=== PATIENT | male | born 1985 | race American Indian/Alaskan Native ===

== ENCOUNTER 2021-09-16 17:27 | Emergency (ER) | payer SELFPAY ==
[2021-09-16 19:34] VITALS: BP 132/84
[2021-09-16 23:06] LABS: Bacteria,Urine 1+ /HPF (Negative); Mucus,Urine FEW /HPF
[2021-09-16 23:09] LABS: WBC,Urine > 182.0 /HPF (0.0-6.0)
[2021-09-16 23:10] LABS: Bilirubin,Urine Negative (Negative); Color,Urine Yellow (Yellow)
[2021-09-16 23:11] LABS: Blood,Urine Large (Negative)
[2021-09-16] MEDS ORDERED: LIDOCAINE-MPF (1%) 10 MG/1 ML VIAL 5 ML INFILTRATI ONE (23:22)
--- NOTE | 2021-09-17 00:05 | Emergency Department Report ---
ED Male HPI - General Chief complaint: Urogenital-Male Stated complaint: PENIS BLEEDING Source: patient Mode of arrival: Ambulatory Limitations: No Limitations - History of Present Illness Initial comments: Patient is a 36-year-old -[place] male with past medical history of asthma who presents to the ED with complaint of acute onset persistent dysuria, urinary frequency and urgency, penile discharge and intermittent hematuria for the last 2 days after having unprotected sexual intercourse with a new sexual partner. Patient states that he has multiple sexual partners and uses no protection. Patient denies dizziness, syncope, fever, chills, nausea and vomiting, diarrhea, abdominal pain, testicular pain, cough, sore throat or headache and low back pain. MD Complaint: penile discharge, dysuria, other (Urinary frequency and urgency; hematuria) -: days(s) (2) Location: penis Radiation: none Severity: severe Severity scale (0 -10): 7 Quality: burning, sharp Consistency: intermittent Improves with: none Worsens with: urination new sexual partner denies other symptoms, discharge, blood in urine, dysuria. denies: swelling, mass, rash, urinary retention, fever, nausea/vomiting, incontinence, other - Related Data Sexually active: Yes Previous Rx's Medication Instructions Recorded Last Taken Type Ibuprofen [Motrin 600 MG tab] 600 mg PO Q8H PRN #60 tablet 09/09/14 Unknown Rx Sulfamethoxazole/Trimethoprim 1 each PO BID #14 tablet 09/09/14 Unknown Rx [Bactrim DS TAB] traMADoL [Ultram 50 MG tab] 50 mg PO Q6HR PRN #14 tablet 09/09/14 Unknown Rx Doxycycline Monohydrate 100 mg PO Q12H #20 cap 09/17/21 Unknown Rx Ibuprofen [Motrin] 600 mg PO Q8H PRN #20 tablet 09/17/21 Unknown Rx Allergies Allergy/AdvReac Type Severity Reaction Status Date / Time No Known Allergies Allergy Verified 09/16/21 19:34 ED Review of Systems ROS: Stated complaint: PENIS BLEEDING Other details as noted in HPI Constitutional: denies: chills, fever Eyes: denies: eye pain, eye discharge, vision change ENT: denies: ear pain, throat pain Respiratory: denies: cough, shortness of breath, wheezing Cardiovascular: denies: chest pain, palpitations Endocrine: no symptoms reported Gastrointestinal: denies: abdominal pain, nausea, vomiting, diarrhea Genitourinary: urgency, dysuria, frequency, hematuria, discharge Musculoskeletal: denies: back pain, joint swelling, arthralgia Skin: denies: rash, lesions Neurological: denies: headache, weakness, paresthesias Psychiatric: denies: anxiety, depression Hematological/Lymphatic: denies: easy bleeding, easy bruising ED Past Medical Hx - Social History Smoking Status: Never Smoker Substance Use Type: Alcohol - Medications Home Medications: Home Medications Medication Instructions Recorded Confirmed Last Taken Type Ibuprofen [Motrin 600 MG tab] 600 mg PO Q8H PRN #60 tablet 09/09/14 Unknown Rx Sulfamethoxazole/Trimethoprim 1 each PO BID #14 tablet 09/09/14 Unknown Rx [Bactrim DS TAB] traMADoL [Ultram 50 MG tab] 50 mg PO Q6HR PRN #14 tablet 09/09/14 Unknown Rx Doxycycline Monohydrate 100 mg PO Q12H #20 cap 09/17/21 Unknown Rx Ibuprofen [Motrin] 600 mg PO Q8H PRN #20 tablet 09/17/21 Unknown Rx ED Physical Exam - General Limitations: No Limitations General appearance: alert, in no apparent distress - Head Head exam: Present: atraumatic, normocephalic, normal inspection - Eye Eye exam: Present: normal appearance, PERRL, EOMI Pupils: Present: normal accommodation - ENT ENT exam: Present: normal exam, normal orophraynx, mucous membranes moist, TM's normal bilaterally, normal external ear exam - Neck Neck exam: Present: normal inspection, full ROM. Absent: tenderness - Respiratory Respiratory exam: Present: normal lung sounds bilaterally. Absent: respiratory distress, wheezes, rales, rhonchi, chest wall tenderness, accessory muscle use, decreased breath sounds, prolonged expiratory - Cardiovascular Cardiovascular Exam: Present: regular rate, normal rhythm, normal heart sounds. Absent: systolic murmur, diastolic murmur, rubs, gallop - GI/Abdominal GI/Abdominal exam: Present: soft, normal bowel sounds. Absent: tenderness, guarding, rebound, hyperactive bowel sounds, hypoactive bowel sounds, organomegaly, mass - External exam: Present: other (Annual exam deferred at this time) - Extremities Exam Extremities exam: Present: normal inspection, full ROM, normal capillary refill - Back Exam Back exam: Present: normal inspection, full ROM. Absent: tenderness, CVA tenderness (L), muscle spasm, paraspinal tenderness, vertebral tenderness - Neurological Exam Neurological exam: Present: alert, oriented X3, CN II-XII intact, normal gait, reflexes normal - Psychiatric Psychiatric exam: Present: normal affect, normal mood, anxious - Skin Skin exam: Present: warm, dry, intact, normal color. Absent: rash ED Course Vital Signs 09/16/21 09/16/21 19:31 22:49 Temperature 97.7 F Pulse Rate 78 Respiratory 18 Rate Blood Pressure 132/84 [Right] O2 Sat by Pulse 98 98 Oximetry ED Medical Decision Making - Medical Decision Making This is a 36-year-old -[place] male with past medical history of asthma who presents to the ED with complaint of acute onset persistent dysuria, urinary frequency and urgency, penile discharge and intermittent hematuria for the last 2 days after having unprotected sexual intercourse with a new sexual partner. Patient states that he has multiple sexual partners and uses no protection. In the ED, patient is alert and oriented x3 and is not in any distress. Urinalysis showed significant urinary tract infection consistent with STD, most likely gonorrhea and chlamydia. Patient was treated empirically with Rocephin 1 g intramuscular injection and was discharged home on a prescription of doxycycline 100 mg twice a day and the patient was advised to follow-up with the [facility] department for further STD testing including HIV and syphilis. Patient was advised to ensure that his sexual partners are also treated at the [facility] to prevent further spread of the STDs. Patient was advised to return to the ED immediately if symptoms get worse. - Differential Diagnosis Urethritis; STD; gonorrhea; chlamydia; UTI; Critical care attestation.: If time is entered above; I have spent that time in minutes in the direct care of this critically ill patient, excluding procedure time. ED Disposition Clinical Impression: Gonococcal urethritis in male, Chlamydial urethritis in male, STD (sexually transmitted disease), Acute urinary tract infection Disposition: HOME / SELF CARE / HOMELESS Is pt being admited?: No Does the pt Need Aspirin: No Condition: Stable Instructions: Urinary Tract Infection, Adult, [id number], Gonorrhea, Urethritis, Adult, Chlamydia, Male Additional Instructions: Take medication with food, drink plenty of fluids, follow-up with your primary care physician or [facility] department for further STD testing including HIV and syphilis. Ensure that you are sexual partners get tested and treated for the same at the [facility]. Return to the ED immediately if symptoms get worse. Prescriptions: Doxycycline Monohydrate 100 mg PO Q12H #20 cap Ibuprofen [Motrin] 600 mg PO Q8H PRN #20 tablet PRN Reason: Pain Referrals: [facility] [Outside] - 7-10 days Forms: STI Treatment and Prevention Time of Disposition: 00:06 Print Language: PANAMANIAN
== END 2021-09-17 00:43 | disposition home or self-care (01) ==
LOC: ED 17:27
DX: N39.0 Urinary tract infection, site not specified (principal); A54.01 Gonococcal cystitis and urethritis, unspecified; A56.01 Chlamydial cystitis and urethritis; Z79.899 Other long term (current) drug therapy
CPT/HCPCS: 81001; 96372; 99283; J0696; J3490